=== PATIENT | female | born 1990 | race Caucasian/White ===

== ENCOUNTER → 2017-10-13 17:44 | Emergency (ER) | payer BC ==
[~2017-10-13 17:44] MED LIST: EPINEPHRINE 1 MG/ML 1 ML VIAL ONE; EPINEPHrine AMP 1 MG/ML IM ONE; Famotidine IV* 10 MG/ML 2 ML (20 mg) ONE; NS 0.9% 1000 ML* 1,000 ML IV ONE; diPHENhydraMINE IV* 50 MG/ML 1 ml VIAL (BENADRYL) IV ONE; diPHENhydraMINE IV* 50 MG/ML 1 ml VIAL (BENADRYL) ONE; methylPREDNISolone 125 MG* 2 ML VIAL IV ONE; methylPREDNISolone 125 MG* 2 ML VIAL ONE
[2017-10-13 18:24] LABS: Hematocrit 46 % (35-47); Hemoglobin 15.5 g/dl (12.0-16.0); Mean Corpuscular HGB Conc 34 g/dl (31-36); Mean Corpuscular Hemoglobin 32 pg (27-31); Mean Corpuscular Volume 94 fL (80-97); Mean Platelet Volume 9 um3 (7.4-10.4); Platelet Count 329 10^3/ul (150-450); Red Blood Count 4.86 10^6/ul (4.0-5.4); Red Cell Distribution Width 13 % (10.5-15)
[2017-10-13 18:39] LABS: EGFR Non-African American 105.4 (>60)
[2017-10-13 22:04] VITALS: BP 107/54
--- NOTE | 2017-11-05 10:14 | ED ---
Carlos Dixon Nilda, scribed for Raheel Padron MD on 10/13/17 at 1807 . Allergic Reaction/Systemic - HPI Summary HPI Summary: This patient is a 27 year old F presenting to [facility] accompanied by friend with a chief complaint of constant allergic reaction a few hours ago. Pt states she had mandarin oranges at 1500, but she has no known allergies to them. The patient rates the pain 5/10 in severity. Symptoms aggravated and alleviated by nothing. Pt states she took Benadryl 50 mg PO at 1700, but symptoms continued to worsen. Patient reports throat tightness, hives, facial swelling, and hoarse voice. Patient denies sore throat, N/V, and dyspnea. LNMP 2 weeks ago. Pt states she has an IUD but does not take any other medications. Pt denies new jewelry, medications, or detergents. Previous blood allergy testing returned negative. - History of Current Complaint Chief Complaint: EDAllergicReaction Time Seen by Provider: 10/13/17 17:55 Hx Obtained From: Patient Hx Last Menstrual Period: 08/04/16 Onset/Duration: Sudden Onset, Started hours ago, Still Present Timing: Constant Severity Currently: Moderate Pain Intensity: 5 Pain Scale Used: 0-10 Numeric Character: Hives Aggravating Factor(s): Nothing Alleviating Factor(s): Nothing Associated Signs And Symptoms: Positive: Other: - throat tightness, hives, facial swelling, and hoarse voice. Patient denies sore throat, N/V, and dyspnea. - Allergies/Home Medications Allergies/Adverse Reactions: Allergies Allergy/AdvReac Type Severity Reaction Status Date / Time No Known Allergies Allergy Verified 08/31/16 16:54 PMH/Surg Hx/FS Hx/Imm Hx Endocrine/Hematology History: Denies: Hx Diabetes, Hx Thyroid Disease Cardiovascular History: Denies: Hx Hypertension, Hx Pacemaker/ICD Respiratory History: Denies: Hx Asthma, Hx Chronic Obstructive Pulmonary Disease (COPD) GI History: Denies: Hx Ulcer History: Denies: Hx Dialysis, Hx Renal Disease Sensory History: Denies: Hx Hearing Aid Psychiatric History: Denies: Hx Panic Disorder Infectious Disease History: No Infectious Disease History: Denies: Hx Clostridium Difficile, Hx Hepatitis, Hx Human Immunodeficiency Virus (HIV), Hx of Known/Suspected MRSA, Hx Shingles, Hx Tuberculosis, Hx Known/ Suspected VRE, Hx Known/Suspected VRSA, History Other Infectious Disease, Traveled Outside the [place] in Last 30 Days - Family History Known Family History: Negative: Cardiac Disease, Hypertension, Diabetes - Social History Alcohol Use: Occasionally Alcohol Amount: twice weekly Substance Use Type: Reports: None Smoking Status (MU): Never Smoked Tobacco Review of Systems Positive: Other - allergic reaction. Negative: Fever, Chills Negative: Erythema Negative: Sore Throat Negative: Chest Pain Positive: Other - throat tightness, hoarse voice; negative dyspnea. Negative: Shortness Of Breath, Cough Negative: Abdominal Pain, Vomiting, Nausea Negative: dysuria, hematuria Negative: Myalgia, Edema Positive: Other - hives, facial swelling. Negative: Rash Neurological: Other - negative dizziness All Other Systems Reviewed And Are Negative: Yes Physical Exam - Summary Physical Exam Summary: Constitutional: Well-developed, Well-nourished, Alert. (-) Distressed Skin: Warm, Dry, splotchy hives on back and neck, no angioedema HENT: Normocephalic; Atraumatic Eyes: Conjunctiva normal Neck: Musculoskeletal ROM normal neck. (-) JVD, (-) Stridor, (-) Tracheal deviation, no trismus Cardio: Rhythm regular, rate normal, Heart sounds normal; Intact distal pulses; The pedal pulses are 2+ and symmetric. Radial pulses are 2+ and symmetric. (-) Murmur Pulmonary/Chest wall: Effort normal. (-) Respiratory distress, (-) Wheezes, (-) Rales Abd: Soft, (-) Tenderness, (-) Distension, (-) Guarding, (-) Rebound Musculoskeletal: (-) Edema Lymph: (-) Cervical adenopathy Neuro: Alert, Oriented x3 Psych: Mood and affect Normal Triage Information Reviewed: Yes Vital Signs On Initial Exam: Initial Vitals Temp Pulse Resp BP Pulse Ox 98.5 F 82 16 152/77 100 10/13/17 17:48 10/13/17 17:48 10/13/17 17:48 10/13/17 17:48 10/13/17 17:48 Vital Signs Reviewed: Yes Diagnostics - Vital Signs Vital Signs Temp Pulse Resp BP Pulse Ox 10/13/17 17:48 98.5 F 82 16 152/77 100 - Laboratory Result Diagrams: 10/13/17 18:11 10/13/17 18:11 Lab Statement: Any lab studies that have been ordered have been reviewed, and results considered in the medical decision making process. Re-Evaluation - Re-Evaluation First Eval Re-Evaluation Time: 20:47 Change: Improved Comment: Pt feels better. No wheezes. Hives resolved. Epi pen at home is . Advised to follow up at [facility] tomorrow. Plan to give Epipen. Allergic Reaction Course/Dx - Course Assessment/Plan: This patient is a 27 year old F [facility] accompanied by friend with a chief complaint of constant allergic reaction a few hours ago. Pt states she had mandarin oranges at 1500, but she has no known allergies to them. The patient rates the pain 5/10 in severity. Symptoms aggravated and alleviated by nothing. Pt states she took Benadryl 50 mg PO at 1700, but symptoms continued to worsen. Patient reports throat tightness, hives , facial swelling, and hoarse voice. Patient denies sore throat, N/V, and dyspnea. LNMP 2 weeks ago. Pt states she has an IUD but does not take any other medications. Pt denies new jewelry, medications, or detergents. Previous blood allergy testing returned negative. In the ED course, the patient was given Benadryl, Epinephrine, Solu-medrol, and IV fluids. Pt is stable and will be D/ C with a diagnosis of allergic response and URI. Pt will be sent Epi-Pen, prescription for prednisone, and is advised to follow up at [facility]. Pt understands and agrees with plan. - Diagnoses Provider Diagnoses: Allergic response, URI (upper respiratory infection) Discharge - Discharge Plan Condition: Stable Disposition: HOME Prescriptions: predniSONE TAB* [Deltasone TAB*] 20 mg PO DAILY #5 tab Patient Education Materials: Upper Respiratory Infection (ED), General Allergic Reaction (ED) Referrals: [facility] - [facility] [Primary Care Provider] - 1 Day Additional Instructions: RETURN TO THE EMERGENCY DEPARTMENT FOR CHANGING OR WORSENING SYMPTOMS. The documentation as recorded by the Carlos aldana Nilda accurately reflects the service I personally performed and the decisions made by , Raheel Padron MD.
== END | disposition home or self-care (01) ==
LOC: ED 17:44
DX: T78.1XXA Other adverse food reactions, not elsewhere classified, initial encounter (principal); X58.XXXA Exposure to other specified factors, initial encounter; J06.9 Acute upper respiratory infection, unspecified; L50.9 Urticaria, unspecified
CPT/HCPCS: 36415; 80053; 85027; 96372; 96374; 96375; 99283; J0171; J1200; J2930

== ENCOUNTER 2017-10-19 18:39 | Emergency (ER) | payer BC ==
[2017-10-19] MEDS ORDERED: predniSONE TAB* 20 MG PO ONE (21:29)
--- NOTE | 2017-10-19 22:01 | ED ---
Osei Dixon Tiffany scriblio for Dagoberto Guallpa on 10/19/17 at 2133 . Allergic Reaction/Systemic - HPI Summary HPI Summary: This patient is a 27 year old F presenting to [facility] accompanied by male with a chief complaint of allergic reaction that began four hours ago. Patient reports throat tightness, shortness of breath and rash. Symptoms alleviated by Benadryl and are resolved at time of evaluation. - History of Current Complaint Chief Complaint: EDAllergicReaction Time Seen by Provider: 10/19/17 21:16 Hx Obtained From: Patient Hx Last Menstrual Period: 08/04/16 Onset/Duration: Started hours ago - 4, Resolved Severity Currently: Mild Pain Intensity: 0 Pain Scale Used: 0-10 Numeric Alleviating Factor(s): Other - Benadryl Associated Signs And Symptoms: Positive: Other: - reports throat tightness, shortness of breath and rash - Allergies/Home Medications Allergies/Adverse Reactions: Allergies Allergy/AdvReac Type Severity Reaction Status Date / Time No Known Allergies Allergy Verified 10/19/17 19:00 PMH/Surg Hx/FS Hx/Imm Hx Previously Healthy: Yes Endocrine/Hematology History: Denies: Hx Diabetes, Hx Thyroid Disease Cardiovascular History: Denies: Hx Hypertension, Hx Pacemaker/ICD Respiratory History: Denies: Hx Asthma, Hx Chronic Obstructive Pulmonary Disease (COPD) GI History: Denies: Hx Ulcer History: Denies: Hx Dialysis, Hx Renal Disease Sensory History: Denies: Hx Hearing Aid Psychiatric History: Denies: Hx Panic Disorder Infectious Disease History: Unable to Obtain/Confirm Infectious Disease History: Denies: Hx Clostridium Difficile, Hx Hepatitis, Hx Human Immunodeficiency Virus (HIV), Hx of Known/Suspected MRSA, Hx Shingles, Hx Tuberculosis, Hx Known/ Suspected VRE, Hx Known/Suspected VRSA, History Other Infectious Disease, Traveled Outside the [place] in Last 30 Days - Family History Known Family History: Negative: Cardiac Disease, Hypertension, Diabetes - Social History Alcohol Use: Occasionally Alcohol Amount: twice weekly Hx Substance Use: No Substance Use Type: Reports: None Hx Tobacco Use: No Smoking Status (MU): Never Smoked Tobacco Review of Systems Positive: Other - Throat tightness that is resolved at time of evaluation Positive: Shortness Of Breath - Resolved at time of evaluation Positive: Rash - Resolved at time of evaluation All Other Systems Reviewed And Are Negative: Yes Physical Exam - Summary Physical Exam Summary: Appearance: Well appearing, no pain distress Skin: warm, dry, reflects adequate perfusion Head/face: normal Eyes: EOMI, MARLI ENT: normal Neck: supple, non-tender Respiratory: CTA, breath sounds present Cardiovascular: RRR, pulses symmetrical Abdomen: non-tender, soft Bowel: present Musculoskeletal: normal, strength/ROM intact Neuro: normal, sensory motor intact, A&Ox3 Triage Information Reviewed: Yes Vital Signs On Initial Exam: Initial Vitals Temp Pulse Resp BP Pulse Ox 98.8 F 110 16 128/94 100 10/19/17 18:58 10/19/17 18:58 10/19/17 18:58 10/19/17 18:58 10/19/17 18:58 Vital Signs Reviewed: Yes Diagnostics - Vital Signs Vital Signs Temp Pulse Resp BP Pulse Ox 10/19/17 20:15 98.6 F 78 16 120/81 99 10/19/17 18:58 98.8 F 110 16 128/94 100 - Laboratory Lab Statement: Any lab studies that have been ordered have been reviewed, and results considered in the medical decision making process. Allergic Reaction Course/Dx - Course Course Of Treatment: This patient is a 27 year old F [facility] by male with a chief complaint of allergic reaction that began four hours ago. In the ED course the patient was given Deltasone. Patient will be discharged with prescription for Deltasone and follow up from PCP. The patient is agreeable with this plan. - Diagnoses Differential Diagnosis/HQI/PQRI: Positive: Bronchospasm, Local Allergic Reaction , Urticaria Provider Diagnoses: Allergic reaction Discharge - Discharge Plan Condition: Stable Disposition: HOME Prescriptions: predniSONE TAB* [Deltasone TAB*] 40 mg PO DAILY #4 tab Patient Education Materials: General Allergic Reaction (ED) Referrals: [facility] - [facility]S [Primary Care Provider] - 3 Days Additional Instructions: Follow up with PCP in 3 days, return to ED if current symptoms worsen, or new symptoms develop. The documentation as recorded by the Osei aldana Tiffany accurately reflects the service I personally performed and the decisions made by , Dagoberto Guallpa.
[2017-10-19 22:18] VITALS: BP 112/70
== END 2017-10-19 22:20 | disposition home or self-care (01) ==
LOC: ED 18:39
DX: T78.40XA Allergy, unspecified, initial encounter (principal); R07.0 Pain in throat; R06.02 Shortness of breath; R21 Rash and other nonspecific skin eruption; X58.XXXA Exposure to other specified factors, initial encounter
CPT/HCPCS: 99282; J7512

== ENCOUNTER 2018-08-05 10:59 | Emergency (ER) | payer BC ==
[2018-08-05 11:37] VITALS: BP 118/82
--- NOTE | 2018-08-05 12:08 | UC ---
Throat Pain/Nasal Bravo HPI - HPI Summary HPI Summary: 28 yo female presents with fatigue, headache, and body aches for the last 5 days. Starting 3 days ago developed sinus pain/pressure/congestion, sneezing, and dry cough. She has been taking ibuprofen and sudafed with mild relief. Denies fever, chills, SOB, chest pain, abdominal pain, n/v. - History of Current Complaint Chief Complaint: UCRespiratory Stated Complaint: SINUS CONGESTION, AND SORE THROAT Time Seen by Provider: 08/05/18 12:07 Hx Obtained From: Patient Hx Last Menstrual Period: 08/02/18 Onset/Duration: Gradual Onset Severity: Moderate Pain Intensity: 6 Pain Scale Used: 0-10 Numeric Cough: Nonproductive - Allergies/Home Medications Allergies/Adverse Reactions: Allergies Allergy/AdvReac Type Severity Reaction Status Date / Time No Known Allergies Allergy Verified 10/19/17 19:00 Home Medications: Home Medications Ibuprofen 400 mg PO ONCE PRN 08/05/18 [History Confirmed 08/05/18] Iud 1 unit INTRAUTERI ONCE 08/05/18 [History] Pseudoephedrine HCl [Sudafed] 1 tab PO ONCE PRN 08/05/18 [History Confirmed 02/17] PMH/Surg Hx/FS Hx/Imm Hx - Additional Past Medical History Additional PMH: None - Surgical History Surgical History: None - Family History Known Family History: Positive: None Negative: Cardiac Disease, Hypertension, Diabetes - Social History Occupation: Employed Full-time Lives: With Family Alcohol Use: Occasionally Alcohol Amount: twice weekly Substance Use Type: None Smoking Status (MU): Never Smoked Tobacco Household Exposure Type: Cigarettes - Immunization History Most Recent Influenza Vaccination: never Most Recent Tetanus Shot: less then 10 yrs Most Recent Pneumonia Vaccination: never Review of Systems Constitutional: Fatigue, Other - Body aches Skin: Negative Eyes: Negative ENT: Nasal Discharge, Sinus Congestion, Sinus Pain/Tenderness Respiratory: Cough Cardiovascular: Negative Gastrointestinal: Negative Neurovascular: Negative Musculoskeletal: Negative Neurological: Headache Psychological: Negative All Other Systems Reviewed And Are Negative: Yes Physical Exam - Summary Physical Exam Summary: GENERAL: NAD. WDWN. No pain distress. SKIN: No rashes, sores, lesions, or open wounds. HEENT: Head: AT/NC Eyes: EOM intact. Conjunctiva clear without inflammation or discharge. Ears: Hearing grossly normal. TMs intact, no bulging, erythema, or edema. Nose: Nasal mucosa pink and moist. Mild TTP maxillary and frontal sinus. Throat: Posterior oropharynx without exudates, erythema, or tonsillar enlargement. Uvula midline. NECK: Supple. Nontender. No lymphadenopathy. CHEST: CTAB. No r/r/w. No accessory muscle use. Breathing comfortably and in no distress. CV: RRR. Without m/r/g. Pulses intact. Cap refill <2seconds NEURO: Alert. PSYCH: Age appropriate behavior. Triage Information Reviewed: Yes Vital Signs: Initial Vital Signs Temp 97.8 F 08/05/18 11:33 Pulse 71 08/05/18 11:33 Resp 18 08/05/18 11:33 BP 118/82 08/05/18 11:33 Pulse Ox 100 08/05/18 11:33 Vital Signs Reviewed: Yes Throat Pain/Nasal Course/Dx - Course Course Of Treatment: Discussed that her symptoms could be related to a viral infection such as mono. She prefers to start antibiotics and be tested for mono. - Differential Dx/Diagnosis Provider Diagnoses: Body aches. Fatigue. Rhinosinusitis Discharge - Sign-Out/Discharge Documenting (check all that apply): Patient Departure All imaging exams completed and their final reports reviewed: No Studies - Discharge Plan Condition: Stable Disposition: HOME Prescriptions: Azithromycin TAB* [Zithromax TAB (Z-YESSICA) 250 mg #6 tabs] 2 tab PO .TODAY, THEN 1 DAILY #1 yessica Patient Education Materials: Sinusitis (ED) Forms: *School Release Referrals: No Primary Care Phys,NOPCP [Primary Care Provider] - Additional Instructions: If you develop a fever, shortness of breath, chest pain, new or worsening symptoms - please call your PCP or go to the ED. 1) Continue to take ibuprofen - may also take Mucinex [id number] - Billing Disposition and Condition Condition: STABLE Disposition: Home
[2018-08-05 16:36] LABS: ABS Basophils 0 10^3/ul (0-0.2); ABS Eosinophils 0 10^3/ul (0-0.6); ABS Lymphocytes 1.7 10^3/ul (1.0-4.8); ABS Monocytes 0.9 10^3/ul (0-0.8); ABS Neutrophils 6.7 10^3/ul (1.5-7.7); ABS Nucleated RBC 0 10^3/ul; Eosinophil % 0.2 % (0-6); Hematocrit 42 % (35-47); Hemoglobin 14.4 g/dl (12.0-16.0); Lymphocyte % 18.5 % (25-47); Mean Corpuscular HGB Conc 34 g/dl (31-36); Mean Corpuscular Hemoglobin 32 pg (27-31); Mean Corpuscular Volume 93 fL (80-97); Mean Platelet Volume 9.3 um3 (7.4-10.4); Nucleated Red Blood Cells % 0.1; Platelet Count 306 10^3/ul (150-450); Red Blood Count 4.52 10^6/ul (4.00-5.40); Red Cell Distribution Width 13 % (10.5-15); White Blood Count 9.4 10^3/ul (3.5-10.8)
== END 2018-08-05 12:42 | disposition home or self-care (01) ==
LOC: UCEAST 10:59
DX: J32.9 Chronic sinusitis, unspecified (principal); J34.89 Other specified disorders of nose and nasal sinuses; R53.83 Other fatigue; R52 Pain, unspecified; R05 Cough
CPT/HCPCS: 36415; 85025; 86308; 99212; G0463

== ENCOUNTER 2018-08-24 23:38 | Emergency (ER) | payer BC ==
--- NOTE | 2018-08-24 23:59 | ED ---
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 She notes nausea but denies vomiting, dysuria, constipation , fevers, and chills. The abd pain is rated 6/10 in severity. Her LNMP 3 was weeks ago. The pt is on the Mirena IUD. - History of Current Complaint Chief Complaint: EDAbdPain Stated Complaint: ABD PAIN Time Seen by Provider: 08/24/18 23:54 Hx Obtained From: Patient, Family/Bakeshop Cleaner Hx Last Menstrual Period: 08/02/18 Onset/Duration: Lasting Weeks - 1 week, Still Present, Worse Since - 2 hrs CERTIFIED COMPOSITES TECHNICIAN Timing: Constant Severity Currently: Moderate Pain Intensity: 6 Pain Scale Used: 0-10 Numeric Location: Discrete At: RLQ Character: Sharp Associated Signs and Symptoms: Positive: Nausea. Negative: Fever, Constipation , Urinary Symptoms, Vomiting Allergies/Adverse Reactions: Allergies Allergy/AdvReac Type Severity Reaction Status Date / Time No Known Allergies Allergy Verified 08/24/18 23:42 PMH/Surg Hx/FS Hx/Imm Hx Previously Healthy: Yes Endocrine/Hematology History: Denies: Hx Diabetes, Hx Thyroid Disease Cardiovascular History: Denies: Hx Hypertension, Hx Pacemaker/ICD Respiratory History: Denies: Hx Asthma, Hx Chronic Obstructive Pulmonary Disease (COPD) GI History: Denies: Hx Ulcer History: Denies: Hx Dialysis, Hx Renal Disease Sensory History: Denies: Hx Hearing Aid Psychiatric History: Denies: Hx Panic Disorder - Cancer History Cancer Type, Location and Year: None reported - Surgical History Surgery Procedure, Year, and Place: None reported Infectious Disease History: No Infectious Disease History: Denies: Hx Clostridium Difficile, Hx Hepatitis, Hx Human Immunodeficiency Virus (HIV), Hx of Known/Suspected MRSA, Hx Shingles, Hx Tuberculosis, Hx Known/ Suspected VRE, Hx Known/Suspected VRSA, History Other Infectious Disease, Traveled Outside the [place] in Last 30 Days - Family History Known Family History: Negative: Cardiac Disease, Hypertension, Diabetes - Social History Occupation: Student Lives: Dormitory/Roommates Alcohol Use: Occasionally Alcohol Amount: twice weekly Hx Substance Use: No Substance Use Type: Reports: None Hx Tobacco Use: No Smoking Status (MU): Never Smoked Tobacco Review of Systems Negative: Fever, Chills Gastrointestinal: Negative - Constipation Positive: Abdominal Pain - RLQ , Nausea. Negative: Vomiting Negative: dysuria All Other Systems Reviewed And Are Negative: Yes Physical Exam - Summary Physical Exam Summary: Appearance: Well-appearing, Well-nourished, lying in bed comfortably Skin: Warm, dry, no obvious rash Eyes: sclera anicteric, no conjunctival pallor ENT: mucous membranes moist, pharynx appears normal Neck: Supple, nontender Respiratory: Clear to auscultation, no signs of respiratory distress Cardiovascular: Normal S1, S2. No murmurs. Normal distal pulses in tibial and radial bilaterally. Abdomen: Soft, tender in the RLQ, normal active bowel sounds present Musculoskeletal: Normal, Strength/ROM Intact Neurological: A&Ox3, awake and alert, mentation is normal, speech is fluent and appropriate Psychiatric: affect is normal, does not appear anxious or depressed Triage Information Reviewed: Yes Vital Signs On Initial Exam: Initial Vitals Temp Pulse Resp BP Pulse Ox 98.0 F 99 16 138/88 100 08/24/18 23:40 08/24/18 23:40 08/24/18 23:40 08/24/18 23:40 08/24/18 23:40 Vital Signs Reviewed: Yes Diagnostics - Vital Signs Vital Signs Temp Pulse Resp BP Pulse Ox 08/24/18 23:40 98.0 F 99 16 138/88 100 - Laboratory Result Diagrams: 08/25/18 00:55 08/25/18 00:55 Lab Statement: Any lab studies that have been ordered have been reviewed, and results considered in the medical decision making process. - CT Abd/Pel CT CT Interpretation Completed By: Radiologist - IMPRESSION: 1. There is a right adnexal cyst measuring approximately 2.3 CM. There is free fluid noted within the pelvis. Recommend pelvic sonography for further evaluation. 2. The appendix is visualized and is unremarkable. The ED physician reviewed this radiology report. 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 She notes nausea but denies vomiting, dysuria, constipation, fevers, and chills. The abd pain is rated 6/10 in severity.The pt is on the Mirena IUD. A physical exam revealed RLQ tenderness. An Abd/Pel CT revealed R adnexal cysts with some free pelvic fluid. In the ED course, pt was given Iohexol 79 mg IV, JKetorolac 10 mg IV and N.s 0.9% 1000ml IV which improved the symptoms. Patient will be discharged with a final Dx of ruptured ovarian cysts. Pt is agreeable with this plan. Allergies noted. - Diagnoses Provider Diagnoses: Ruptured ovarian cyst Discharge - Sign-Out/Discharge Documenting (check all that apply): Patient Departure - DC - Discharge Plan Condition: Good Disposition: HOME Patient Education Materials: Ruptured Ovarian Cyst (ED) Referrals: [facility] [Outside] Additional Instructions: The vast majority of ruptured ovarian cysts heal on their own. Return to ED for any new or worsening symptoms - Billing Disposition and Condition Condition: GOOD Disposition: Home - Attestation Statements Document Initiated by Elysiaibe: Yes Documenting Scribe: Rosa Fitzgerald Provider For Whom Elysiaibrvaen is Documenting (Include Credential): Dr. Yuriy Marlow MD Scribe Attestation: Rosa Dixon scribed for Dr. Yuriy Marlow MD on 08/26/18 at 1436. Scribe Documentation Reviewed: Yes Provider Attestation: The documentation as recorded by the Rosa aldana accurately reflects the service I personally performed and the decisions made by me, Dr. Yuriy Marlow MD
[2018-08-25] MEDS ORDERED: Ketorolac INJ* 30 MG/ML 1 ML VIAL IV PUSH ONE (00:20)
[2018-08-25] MEDS: NS 0.9% 1000 ML* 2,000 ML IV ONE (00:39)
[2018-08-25 01:04] LABS: ABS Basophils 0.1 10^3/ul (0-0.2); ABS Eosinophils 0.1 10^3/ul (0-0.6); ABS Lymphocytes 3.3 10^3/ul (1.0-4.8); ABS Monocytes 0.8 10^3/ul (0-0.8); ABS Neutrophils 5.2 10^3/ul (1.5-7.7); ABS Nucleated RBC 0 10^3/ul; Eosinophil % 1.2 % (0-6); Hematocrit 41 % (35-47); Hemoglobin 14.1 g/dl (12.0-16.0); Lymphocyte % 35.1 % (25-47); Mean Corpuscular HGB Conc 35 g/dl (31-36); Mean Corpuscular Hemoglobin 33 pg (27-31); Mean Corpuscular Volume 94 fL (80-97); Mean Platelet Volume 8.9 um3 (7.4-10.4); Nucleated Red Blood Cells % 0.1; Platelet Count 301 10^3/ul (150-450); Red Blood Count 4.31 10^6/ul (4.00-5.40); Red Cell Distribution Width 13 % (10.5-15); White Blood Count 9.5 10^3/ul (3.5-10.8)
[2018-08-25 01:21] LABS: EGFR Non-African American 142.5 (>60)
[2018-08-25] MEDS ORDERED: Iohexol 300* (CONTRAST) 10 ML SDV IV ONE (02:17)
[2018-08-25 03:35] LABS: Urine Appearance Clear; Urine Blood Negative (Negative); Urine Color Straw; Urine Ketones Negative (Negative); Urine Protein Negative (Negative); Urine Specific Gravity 1.019 (1.010-1.030); Urine Urobilinogen Negative (Negative)
--- NOTE | 2018-08-25 04:08 | RAD ---
EXAM: CT Abdomen and Pelvis With Intravenous Contrast EXAM DATE/TIME: 08/25/2018 3:02 AM CLINICAL HISTORY: 28 years old, female; Pain; Abdominal pain; Flank; Right lower quadrant (rlq); Additional info: Rlq pain, R/O appy TECHNIQUE: Axial computed tomography images of the abdomen and pelvis with intravenous contrast. All CT scans at this facility use at least one of these dose optimization techniques: automated exposure control; mA and/or kV adjustment per patient size (includes targeted exams where dose is matched to clinical indication); or iterative reconstruction. Coronal and sagittal reformatted images were created and reviewed. CONTRAST: 79 ml of OMNI 300 administered intravenously. COMPARISON: No relevant prior studies available. FINDINGS: Lower thorax: No acute findings. ABDOMEN: Liver: Normal. No mass. Gallbladder and bile ducts: Normal. No calcified stones. No ductal dilation. Pancreas: Normal. No ductal dilation. Spleen: Normal. No splenomegaly. Adrenals: Normal. No mass. Kidneys and ureters: There is symmetric excretion of contrast in the kidneys. There is no evidence of hydronephrosis. Stomach and bowel: Normal. No obstruction. No mucosal thickening. Appendix: The appendix is visualized and is unremarkable. PELVIS: Bladder: Unremarkable as visualized. Reproductive: There is a right adnexal cyst measuring approximately 2.3 CM. There is free fluid noted within the pelvis. Recommend pelvic sonography for further evaluation. There is an IUD noted within the uterus. ABDOMEN and PELVIS: Intraperitoneal space: See Reproductive Finding. Bones/joints: No acute fracture. No dislocation. Soft tissues: Unremarkable. Vasculature: Normal. No abdominal aortic aneurysm. Lymph nodes: Normal. No enlarged lymph nodes. IMPRESSION: 1. There is a right adnexal cyst measuring approximately 2.3 CM. There is free fluid noted within the pelvis. Recommend pelvic sonography for further evaluation. 2. The appendix is visualized and is unremarkable. To contact [facility] with a general question: [facility] - [phone] For direct physician to physician contact: Physician Hotline - [phone] [facility] ([facility] Facility ID #[id number])
[2018-08-25 04:26] VITALS: BP 124/69
== END 2018-08-25 04:20 | disposition home or self-care (01) ==
LOC: ED 23:38
DX: N83.201 Unspecified ovarian cyst, right side (principal); R10.31 Right lower quadrant pain
CPT/HCPCS: 36415; 74177; 80053; 81003; 84702; 85025; 96360; 96361; 96372; 99283; J1885; Q9967

== ENCOUNTER 2018-08-26 19:29 | Emergency (ER) | payer BC ==
[2018-08-26 22:21] LABS: Hematocrit 43 % (35-47); Hemoglobin 14.7 g/dl (12.0-16.0); Mean Corpuscular HGB Conc 34 g/dl (31-36); Mean Corpuscular Hemoglobin 33 pg (27-31); Mean Corpuscular Volume 95 fL (80-97); Mean Platelet Volume 8.9 um3 (7.4-10.4); Platelet Count 291 10^3/ul (150-450); Red Blood Count 4.53 10^6/ul (4.00-5.40); Red Cell Distribution Width 13 % (10.5-15); White Blood Count 10.7 10^3/ul (3.5-10.8)
--- NOTE | 2018-08-26 22:28 | ED ---
Abdominal Pain/Female - HPI Summary HPI Summary: This patient is a 28 year old F presenting to [facility] accompanied by another female with a chief complaint of RLQ pain since 08-24-18. Pt was seen in the ED on this date and dx with ruptured ovarian cysts. She is concerned because the pain has not decreased even with NSAIDs and states it increased slightly and radiates into her back. The patient rates the pain 7/10 in severity. Patient denies vaginal bleeding, hematuria, fever, chills, visual changes ,ear pain, sore throat ,neck pain ,back pain, GARG, edema, rashes, bruises, anxiety, and depression. - History of Current Complaint Chief Complaint: EDAbdPain Stated Complaint: ABD PAIN Hx Obtained From: Patient Hx Last Menstrual Period: 08/02/18 Onset/Duration: Still Present, Worse Since Timing: Constant Severity Initially: Moderate Severity Currently: Moderate Pain Intensity: 7 Pain Scale Used: 0-10 Numeric Location: Discrete At: RLQ Radiates: Yes Radiates to: Back Associated Signs and Symptoms: Positive: Negative - vaginal bleeding, hematuria , fever ,chills, garg, visual changes ,ear pain ,sore throat ,neck pain ,back pain , GARG, edema, rashes, bruises, anxiety, and depression Allergies/Adverse Reactions: Allergies Allergy/AdvReac Type Severity Reaction Status Date / Time No Known Allergies Allergy Verified 08/26/18 22:32 PMH/Surg Hx/FS Hx/Imm Hx Endocrine/Hematology History: Denies: Hx Diabetes, Hx Thyroid Disease Cardiovascular History: Denies: Hx Congenital Heart Disease, Hx Congestive Heart Failure, Hx Hypertension, Hx Pacemaker/ICD Respiratory History: Denies: Hx Asthma, Hx Chronic Obstructive Pulmonary Disease (COPD) GI History: Denies: Hx Ulcer History: Denies: Hx Dialysis, Hx Renal Disease Sensory History: Denies: Hx Hearing Aid Neurological History: Denies: Hx Headaches, Hx Nerve Disease Psychiatric History: Denies: Hx Panic Disorder - Cancer History Cancer Type, Location and Year: None reported - Surgical History Surgery Procedure, Year, and Place: None reported Infectious Disease History: No Infectious Disease History: Denies: Hx Clostridium Difficile, Hx Hepatitis, Hx Human Immunodeficiency Virus (HIV), Hx of Known/Suspected MRSA, Hx Shingles, Hx Tuberculosis, Hx Known/ Suspected VRE, Hx Known/Suspected VRSA, History Other Infectious Disease, Traveled Outside the [place] in Last 30 Days - Family History Known Family History: Negative: Cardiac Disease, Hypertension, Diabetes - Social History Occupation: Student Lives: Dormitory/Roommates Alcohol Use: Occasionally Alcohol Amount: twice weekly Hx Substance Use: No Substance Use Type: Reports: None Hx Tobacco Use: No Smoking Status (MU): Never Smoked Tobacco Review of Systems Negative: Fever, Chills Negative: Blurred Vision Negative: Sore Throat, Ear Ache Positive: Abdominal Pain - RLQ Genitourinary: Negative - vaginal bleeding Negative: hematuria Musculoskeletal: Negative - neck pain and back pain Negative: Edema Negative: Rash, Bruising Negative: Headache Negative: Anxious, Depressed All Other Systems Reviewed And Are Negative: No Physical Exam - Summary Physical Exam Summary: Appearance: Alert, conversive, nontoxic appearing Skin: Warm, dry, no mottling, no rashes, no contusions HEENT: EOMI, PERRL, moist mucous membranes Neck: No masses on the neck, supple Respiratory: Clear to auscultation, breath sounds present, no rales, no rhonchi , no wheezes Cardiovascular: RRR, pulses are symmetrical in both lower and upper extremities Abdomen: Soft, lower abd discomfort Bowel Sounds: Present Musculoskeletal: No CVA tenderness, no obvious deformity, moving all extremities in a grossly normal manner Neurological: A&Ox3, CN II-XII Intact, moving all extremities symmetrically Psychiatric: Normal affect and mood Triage Information Reviewed: Yes Vital Signs On Initial Exam: Initial Vitals Temp Pulse Resp BP Pulse Ox 98.7 F 81 15 137/92 100 08/26/18 19:31 08/26/18 19:31 08/26/18 19:31 08/26/18 19:31 08/26/18 19:31 Vital Signs Reviewed: Yes Diagnostics - Vital Signs Vital Signs Temp Pulse Resp BP Pulse Ox 08/26/18 19:31 98.7 F 81 15 137/92 100 - Laboratory Lab Results: Lab Results 08/26/18 Range/Units 22:13 WBC 10.7 (3.5-10.8) 10^3/ul RBC 4.53 (4.00-5.40) 10^6/ul Hgb 14.7 (12.0-16.0) g/dl Hct 43 (35-47) % MCV 95 (80-97) fL MCH 33 H (27-31) pg MCHC 34 (31-36) g/dl RDW 13 (10.5-15) % Plt Count 291 (150-450) 10^3/ul MPV 8.9 (7.4-10.4) um3 Result Diagrams: 08/26/18 22:13 08/26/18 22:13 Lab Statement: Any lab studies that have been ordered have been reviewed, and results considered in the medical decision making process. - Ultrasound No standard instances Ultrasound Interpretation Completed By: Radiologist - US Pelvis reveals, per radiologist, Small complex cyst in the right ovary. ED physician has reviewed this radiology report. Abdominal Pain Fem Course/Dx - Course Course Of Treatment: This patient is a 28 year old F presenting to [facility] accompanied by another female with a chief complaint of RLQ pain since . Pt was seen in the ED on this date and dx with ruptured ovarian cysts. She is concerned because the pain has not decreased even with NSAIDs and states it increased slight and radiates into her back. The patient rates the pain 7/10 in severity. Patient denies vaginal bleeding, hematuria, fever ,chills, visual changes ,ear pain ,sore throat ,neck pain ,back pain, GARG, edema, rashes, bruises , anxiety, and depression. . US Pelvis reveals, per radiologist, Small complex cyst in the right ovary. Blood work obtained. In the ED course the patient was given toradol, norco, and IV fluids. After medications the patient improved. Patient will be discharged and follow up from Dr. Casillas. It was suggested the patient take some time off school and she was given a note. The patient is agreeable with this plan. - Diagnoses Provider Diagnoses: Ovarian cyst, complex Discharge - Sign-Out/Discharge Documenting (check all that apply): Patient Departure - Discharge Plan Condition: Stable Disposition: HOME Patient Education Materials: Ovarian Cyst (ED) Forms: *School Release Referrals: David Casillas MD [Medical Doctor] - Additional Instructions: Please follow up with a chemical etching processor. I have given you a referral on your discharge papers. take tylenol and motrin at the same time every 6 hours for pain. return if worse or any new symptoms. - Billing Disposition and Condition Condition: STABLE Disposition: Home - Attestation Statements Document Initiated by Scribe: Yes Documenting Scribe: Familia Garber Provider For Whom Scribe is Documenting (Include Credential): Racquel Whaley MD Scribe Attestation: I, Familia Garber, scribed for Racquel Whaley MD on 08/27/18 at 0632. Scribe Documentation Reviewed: Yes Provider Attestation: The documentation as recorded by the scribe, Familia Garber accurately reflects the service I personally performed and the decisions made by me, Racquel Whaley MD
[2018-08-26 22:41] LABS: EGFR Non-African American 118.6 (>60)
[2018-08-26] MEDS ORDERED: Ketorolac INJ* 30 MG/ML 1 ML VIAL IV PUSH ONE (22:58)
[2018-08-26] MEDS ORDERED: NS 0.9% 1000 ML* 1,000 ML IV ONE (22:58)
--- NOTE | 2018-08-27 00:23 | RAD ---
EXAM: US Pelvis Complete, Transabdominal EXAM DATE/TIME: 08/26/2018 11:28 PM CLINICAL HISTORY: 28 years old, female; Pain and abnormal findings; Abnormal imaging test; Pelvic pain; Additional info: Ovarian cysts, pain, had CT , yesterday TECHNIQUE: Real-time transabdominal pelvic ultrasound with image documentation. Complete exam. COMPARISON: A/P W CT ABD/PEL W 08/25/2018 3:08 AM FINDINGS: Uterus/cervix: Uterus measures 7.1 x 2.8 x 3.9 cm. No mass or other abnormality. Endometrial stripe measures 4.2 mm. Right adnexa: Right ovary measures 3.9 x 3.4 x 2.4 cm. Small complex cyst with multiple thin septations measuring 2.1 x 1.3 x 2.0 cm. Left adnexa: See Right Adnexa Finding. Free fluid: Moderate amount of free fluid in the cul-de-sac. Bladder: Normal. IMPRESSION: Small complex cyst in the right ovary. RECOMMENDATION: 1. Imaging options include short interval followup with ultrasound or pelvic MRI. To contact [facility] with a general question: Operations Center - [phone] For direct physician to physician contact: Physician Hotline - [phone] [facility] ([facility] Facility ID #[id number])
[2018-08-27] MEDS ORDERED: HYDROcodone/ACETAMIN 5-325 MG* 1 TAB PO ONE (00:55)
[2018-08-27 01:32] VITALS: BP 122/69
== END 2018-08-27 01:33 | disposition home or self-care (01) ==
LOC: ED 19:29
DX: N83.209 Unspecified ovarian cyst, unspecified side (principal); R10.31 Right lower quadrant pain
CPT/HCPCS: 36415; 76856; 80053; 84702; 85027; 96374; 99283; J1885

== ENCOUNTER 2018-08-27 16:24 | Emergency (ER) | payer BC ==
[2018-08-27] MEDS ORDERED: Ketorolac INJ* 60 MG/2 ML VIAL IM ONE (18:25)
[2018-08-27] MEDS ORDERED: oxyCODONE/Acetamin 5/325 MG* TAB PO ONE (18:26)
--- NOTE | 2018-08-27 18:29 | ED ---
Abdominal Pain/Female - HPI Summary HPI Summary: The pt is a 28 y/o female presenting to [facility] c/o RLQ pain secondary to ovarian cysts that were dx on US and CT scan. The pain rated 9/10 in severity is described as clasping. She notes insomnia secondary to the pain. Patient said that not that the pain is worse but it's currently not controlled with tylenol and motrin. She took Tylenol and Ibuprofen to no relief. - History of Current Complaint Chief Complaint: EDAbdPain Stated Complaint: LWR ABD PAIN Time Seen by Provider: 08/27/18 18:06 Hx Obtained From: Patient Hx Last Menstrual Period: 08/02/18 Onset/Duration: Still Present, Worse Since - Today, Other - Acute on chronic Timing: Constant Severity Initially: Severe Severity Currently: Severe Pain Intensity: 9 Pain Scale Used: 0-10 Numeric Location: Discrete At: RLQ Alleviating Factor(s): Nothing Associated Signs and Symptoms: Positive: Other: - Insomnia secondary to the pain Allergies/Adverse Reactions: Allergies Allergy/AdvReac Type Severity Reaction Status Date / Time No Known Allergies Allergy Verified 08/27/18 16:39 PMH/Surg Hx/FS Hx/Imm Hx Previously Healthy: No - Mhx of ovarian cysts Endocrine/Hematology History: Denies: Hx Diabetes, Hx Thyroid Disease Cardiovascular History: Denies: Hx Congenital Heart Disease, Hx Congestive Heart Failure, Hx Hypertension, Hx Pacemaker/ICD Respiratory History: Denies: Hx Asthma, Hx Chronic Obstructive Pulmonary Disease (COPD) GI History: Denies: Hx Ulcer History: Denies: Hx Dialysis, Hx Renal Disease Sensory History: Denies: Hx Hearing Aid Neurological History: Denies: Hx Headaches, Hx Nerve Disease Psychiatric History: Denies: Hx Panic Disorder - Cancer History Cancer Type, Location and Year: None reported - Surgical History Surgery Procedure, Year, and Place: None reported Infectious Disease History: No Infectious Disease History: Denies: Hx Clostridium Difficile, Hx Hepatitis, Hx Human Immunodeficiency Virus (HIV), Hx of Known/Suspected MRSA, Hx Shingles, Hx Tuberculosis, Hx Known/ Suspected VRE, Hx Known/Suspected VRSA, History Other Infectious Disease, Traveled Outside the [place] in Last 30 Days - Family History Known Family History: Negative: Cardiac Disease, Hypertension, Diabetes - Social History Occupation: Student Lives: Dormitory/Roommates Alcohol Use: Occasionally Alcohol Amount: twice weekly Hx Substance Use: No Substance Use Type: Reports: None Hx Tobacco Use: No Smoking Status (MU): Never Smoked Tobacco Review of Systems Constitutional: Other - Positive: Insomnia Negative: Fever Positive: Abdominal Pain - RLQ All Other Systems Reviewed And Are Negative: Yes Physical Exam - Summary Physical Exam Summary: GENERAL: Patient is a well developed and nourished F who is lying comfortable in the stretcher. Patient is not in any acute respiratory distress. HEAD AND FACE: Normocephalic EYES: PERRLA, EOMI x 2. EARS: Hearing grossly intact. MOUTH: Oropharynx within normal limits. NECK: Supple, trachea is midline, no adenopathy, no JVD, no carotid bruit. CHEST: Symmetric, no tenderness at palpation LUNGS: Clear to auscultation bilaterally. No wheezing or crackles. CVS: Regular rate and rhythm, S1 and S2 present, no murmurs or gallops appreciated. ABDOMEN: Soft. Tenderness in the RLQ. Bowel sounds are normal. No abdominal abnormal pulsations. EXTREMITIES: Full ROM in all major joints, no edema, no cyanosis or clubbing. NEURO: Alert and oriented x 3. No acute neurological deficits. Speech is normal and follows commands. SKIN: Dry and warm Triage Information Reviewed: Yes Vital Signs On Initial Exam: Initial Vitals Temp Pulse Resp BP Pulse Ox 98.5 F 81 16 134/91 100 08/27/18 16:35 08/27/18 16:35 08/27/18 16:35 08/27/18 16:35 08/27/18 16:35 Vital Signs Reviewed: Yes Diagnostics - Vital Signs Vital Signs Temp Pulse Resp BP Pulse Ox 08/27/18 16:35 98.5 F 81 16 134/91 100 - Laboratory Result Diagrams: 08/27/18 18:14 08/27/18 18:14 Lab Statement: Any lab studies that have been ordered have been reviewed, and results considered in the medical decision making process. Re-Evaluation - Re-Evaluation First Eval Re-Evaluation Time: 19:46 Change: Improved - Pt feels better after the receiving medications and is ready to go home. Abdominal Pain Fem Course/Dx - Course Course Of Treatment: A 28 year-old F presents to the ED with a CC of RLQ pain secondary to ovarian cysts. The pain rated 9/10 in severity is described as clasping. She notes insomnia secondary to the pain. She took Tylenol and Ibuprofen to no relief. A physical exam revealed RLQ tenderness. We reviewed the previous CT scans and US. The pt states that the pain feels the same as when she was last seen. In the ED course, pt was given Ketorolac 60 mg IM and Oxycodone 1 tab PO which improved the symptoms. Patient will be discharged with a final Dx of ovarian cysts. I discussed results with patient and she agrees with this plan. She is hemodynamically stable upon discharge. Strict return precautions given and she will otherwise follow up with [facility]. Allergies noted. - Diagnoses Provider Diagnoses: Ovarian cyst Discharge - Sign-Out/Discharge Documenting (check all that apply): Patient Departure - DC - Discharge Plan Condition: Stable Disposition: HOME Prescriptions: Ibuprofen 800 mg PO TID PRN #20 tablet PRN Reason: Pain Oxycodone HCl/Acetaminophen [Percocet 5-325 mg Tablet] 1 each PO TID #12 tablet MDD 3 Patient Education Materials: Ovarian Cyst (ED) Referrals: [facility] - Rodger MILLS [Medical Doctor] - [facility] [Outside] Additional Instructions: Follow up with PCP in 1- 3 days. Return to ED for any new or worsening symptoms - Billing Disposition and Condition Condition: STABLE Disposition: Home - Attestation Statements Document Initiated by Randy: Yes Documenting Scribe: Rosa Fitzgerald Provider For Whom Randy is Documenting (Include Credential): Dr. Doug Rebollar MD Scribe Attestation: Rosa Dixon scribed for Dr. Doug Rebollar MD on 08/27/18 at 2120. Scribe Documentation Reviewed: Yes Provider Attestation: The documentation as recorded by the Rosa aldana accurately reflects the service I personally performed and the decisions made by , Dr. Doug Rebollar MD
[2018-08-27 18:30] LABS: ABS Basophils 0 10^3/ul (0-0.2); ABS Eosinophils 0.1 10^3/ul (0-0.6); ABS Lymphocytes 2.2 10^3/ul (1.0-4.8); ABS Monocytes 0.7 10^3/ul (0-0.8); ABS Neutrophils 4.3 10^3/ul (1.5-7.7); ABS Nucleated RBC 0 10^3/ul; Eosinophil % 1.1 % (0-6); Hematocrit 40 % (35-47); Hemoglobin 13.4 g/dl (12.0-16.0); Lymphocyte % 29.9 % (25-47); Mean Corpuscular HGB Conc 34 g/dl (31-36); Mean Corpuscular Hemoglobin 32 pg (27-31); Mean Corpuscular Volume 95 fL (80-97); Mean Platelet Volume 8.9 um3 (7.4-10.4); Nucleated Red Blood Cells % 0.1; Platelet Count 269 10^3/ul (150-450); Red Cell Distribution Width 13 % (10.5-15); White Blood Count 7.4 10^3/ul (3.5-10.8)
[2018-08-27 18:40] LABS: Urine Appearance Clear; Urine Blood Negative (Negative); Urine Color Yellow; Urine Ketones Negative (Negative); Urine Protein Negative (Negative); Urine Red Blood Cell Trace(0-2/hpf) (Absent); Urine Specific Gravity 1.013 (1.010-1.030); Urine Urobilinogen Negative (Negative); Urine White Blood Cell Absent (Absent)
[2018-08-27 18:43] LABS: EGFR Non-African American 118.6 (>60)
[2018-08-27 19:55] VITALS: BP 133/81
== END 2018-08-27 19:54 | disposition home or self-care (01) ==
LOC: ED 16:24
DX: N83.209 Unspecified ovarian cyst, unspecified side (principal); R10.31 Right lower quadrant pain
CPT/HCPCS: 36415; 80053; 81003; 81015; 83690; 84702; 85025; 87086; 96372; 99283; A9270-GY; J1885